=== PATIENT | female | born 1985 ===

== ENCOUNTER 2016-05-10 16:39 | Outpatient (CLI) | payer MEDICAID, OTHER ==
[2016-05-10 17:12] LABS: URINE BILIRUBIN NEGATIVE (NEGATIVE); URINE BLOOD NEGATIVE (NEGATIVE); URINE GLUCOSE (UA) NEGATIVE (NEGATIVE); URINE LEUKOCYTE ESTERASE 2+ (NEGATIVE); URINE NITRITE NEGATIVE (NEGATIVE); URINE PROTEIN TRACE (NEGATIVE); URINE UROBILINOGEN NORMAL (0-1 mg/dl)
[2016-05-10 17:14] LABS: URINE APPEARANCE SL CLOUDY; URINE COLOR AMBER
[2016-05-10 17:27] VITALS: BMI 32.3
[2016-05-10 17:27] LABS: URINE BACTERIA 2+; URINE EPITHELIAL CELLS 15-20 /hpf; URINE RBC 0 /hpf
== END 2016-05-10 18:47 | disposition home or self-care (01) ==
LOC: FBC 16:39 → FBCOUT 16:39
PROVIDERS: ATTEND Family Medicine
DX: O26.899 Other specified pregnancy related conditions, unspecified trimester (principal); R10.9 Unspecified abdominal pain; Z3A.00 Weeks of gestation of pregnancy not specified
CPT/HCPCS: 81001; 59025; 81002; G0463